=== PATIENT | male | born 1955 | race Caucasian/White ===

== ENCOUNTER 2018-09-09 13:06 | Day surgery (SDC) | payer SELFPAY ==
[~2018-09-09] VITALS: Ht 162.6 cm; Wt 86.9 kg
[~2018-09-09 13:06] MED LIST: ASPIRIN 81M81 MG/TA2 PO; FOLIC ACID 11 MG/TA1 PO; LOPRESSOR100 MG PO; NORVASC 10MG10 MG PO; NORVASC 5MG5 MG/TAB PO; THERAGRAN TAB1 UDTAB PO; THIAMINE 1100 MG/TAB PO; VASOTEC 10M10 MG/TAB PO
[2018-09-09 13:22] VITALS: BP 155/93; PULSE 82; TEMP 97.6
[2018-09-09] MEDS ORDERED: CATAPRES 0.1MG0.1 MG PO (14:04)
[2018-09-09] MEDS ORDERED: COZAAR 25MG25 MG/TAB PO (14:05)
[2018-09-09] MEDS ORDERED: MEVACOR10 MG PO (14:06)
[2018-09-09] MEDS ORDERED: BYSTOLIC10 MG PO (14:07)
[2018-09-09 14:55] VITALS: BP 159/91; PULSE 68; TEMP 97.9
--- NOTE | 2018-09-09 14:55 | NUR ---
TO BAY 2 VIA CART FROM ENDO ROOM, PT WALKED TO CHAIR, PAUL IN ROOM, HELPS WITH TRANSLATION, PT TAKES WATER, C/O GAS PAIN, CALL LIGHT IN REACH
[2018-09-09 15:10] VITALS: BP 155/100; PULSE 71
[2018-09-09 15:25] VITALS: BP 145/95; PULSE 66
--- NOTE | 2018-09-09 15:25 | NUR ---
IN TO TALK WITH PT AND PAUL. IV D'CD INTACT, PT UP TO B/R THEN DRESSED
[2018-09-09 15:40] VITALS: BP 153/92; PULSE 69
--- NOTE | 2018-09-09 16:00 | NUR ---
REVIEWED DISCHARGE INST. WITH PT WITH PAUL INTERPRETING, ON ACTIVITY, PRECAUTIONS AND FOLLOWUP WITH VERBAL UNDERSTANDING. PT DISCHARGED VIA W/C TO [facility]
== END 2018-09-09 16:00 | disposition home or self-care (01) ==
LOC: SDCO 13:06
DX: D12.5 Benign neoplasm of sigmoid colon (principal); K92.1 Melena; E66.9 Obesity, unspecified; Z68.35 Body mass index [BMI] 35.0-35.9, adult; Z79.82 Long term (current) use of aspirin
CPT/HCPCS: J2250; J2405; J3010; J7030

== ENCOUNTER 2019-06-18 11:02 | Inpatient (IN) | payer SELFPAY ==
[2019-06-18] VITALS (419 sets, daily range): BP systolic 137–160; BP diastolic 92–101; PULSE 76–89; TEMP 97.9–98.5; O2SAT 84–100
[~2019-06-18] VITALS: Ht 157 cm; Wt 86.4 kg
[~2019-06-18 11:02] MED LIST changes: +BYSTOLIC10 MG PO; +CATAPRES 0.1MG0.1 MG PO; +COZAAR 25MG25 MG/TAB PO; +MEVACOR10 MG PO
[2019-06-18 11:26] LABS: BASO # 0.1 (0.0-0.2); BASO % 1.4 % (0.0-2.0); EOS # 0.1 (0.0-0.7); EOS % 2.1 % (0-4.0); GRAN # 1.8 (1.4-6.5); GRAN % 40.3 % (42.2-75.2); HEMATOCRIT 40.7 % (42.0-52.0); HEMOGLOBIN 14.8 g/dl (13.5-18.0); LYMPH # 1.9 (1.2-3.4); LYMPH % 44.5 % (20.0-51.0); MEAN CELL VOLUME 84 fl (80.0-100.0); MEAN CORPUSCULAR HEMOGLOBIN 30 pg (27.0-31.0); MEAN CORPUSCULAR HGB CONC 36 g/dl (33.0-37.0); MONO # 0.5 (0.1-0.6); MONO % 11.2 % (1.7-9.3); PLATELET COUNT 237 K/mm3 (130-400); RED BLOOD COUNT 4.87 M/mm3 (4.20-5.60)
[2019-06-18 11:30] LABS: PROTHROMBIN TIME 11.9 SECONDS (9.7-12.8)
[2019-06-18 11:33] LABS: PARTIAL THROMBOPLASTIN TIME 33.2 SECONDS (26.0-37.0)
[2019-06-18 11:38] LABS: ALBUMIN 4.3 gm/dL (3.5-5.0); BILIRUBIN,TOTAL 0.4 mg/dL (0.0-1.0); CALCIUM 8.5 mg/dL (8.4-10.2); CREATININE, serum 0.83 (0.66-1.25); MAGNESIUM 1.9 mg/dL (1.6-2.3); POTASSIUM 3.6 mmol/L (3.4-5.0); TOTAL PROTEIN 7.6 gm/dL (6.4-8.2)
[2019-06-18] MEDS ORDERED: ASPIRIN 81M81 MG/TA2 PO (11:46)
[2019-06-18] MEDS ORDERED: PRINIVIL40 MG PO (11:46)
[2019-06-18 11:56] LABS: TROPONIN-I 0.049 ng/mL (0.000-0.035)
--- NOTE | 2019-06-18 19:07 | NUR ---
REPORT GIVEN TO ERASMO OCAMPO. PATIENT HAS NO COMPLAINTS. CARE TURNED OVER AT THIS TIME.
--- NOTE | 2019-06-18 21:05 | NUR ---
Patient states his chest pain has increased to 4/10. Notified cardiology, see notification flowsheet for orders to increase Nitro. After increasing medication, patient reports chest pain is 2/10 and "better"
[2019-06-19] VITALS (1137 sets, daily range): BP systolic 142–188; BP diastolic 86–127; PULSE 73–107; TEMP 98–98.7; O2SAT 76–100
--- NOTE | 2019-06-19 02:32 | NUR ---
Patient complaining of difficulty breathing and requests oxygen via nasal cannula. SpO2 prior to oxygen adminstation is 97%, after administration is 98% but patient states it is helping. Patient also states that chest pain is 2/10. No other complaints from patient, IV infusing well, patient uses urinal in bed independently.
--- NOTE | 2019-06-19 05:42 | NUR ---
Patient reports no chest pain at this time. See IV gtt titration for medication status. IV infusing well, patient tolerated ECG well, uses urinal in bed per self and reports no other complaints at this time.
[2019-06-19 06:40] LABS: ALBUMIN 3.8 gm/dL (3.5-5.0); BILIRUBIN,TOTAL 0.6 mg/dL (0.0-1.0); CALCIUM 7.4 mg/dL (8.4-10.2); CHOLESTEROL RISK RATIO 2.7; CREATININE, serum 0.8 (0.66-1.25); MAGNESIUM 1.9 mg/dL (1.6-2.3); POTASSIUM 3.7 mmol/L (3.4-5.0); TOTAL PROTEIN 6.8 gm/dL (6.4-8.2)
[2019-06-19 06:50] LABS: TROPONIN-I 0.028 ng/mL (0.000-0.035)
--- NOTE | 2019-06-19 07:22 | NUR ---
Report received from Alee ZIMMERMAN and care resumed.
--- NOTE | 2019-06-19 09:03 | NUR ---
Cardiology in to see pt at this time.
--- NOTE | 2019-06-19 09:55 | NUR ---
FIGUEROA lee met with the patient to complete intial assessment. The patient lives in [place] with his , Marisabel and their granddaughter. The patient receives medical care and medications from [facility] in . The patient does not have advanced directives in the EMR. The patient is self-pay. FIGUEROA lee contacted [employer] financial reporting accountant and she reports they will complete a financial assistance application. The patient inquired about his procedure. FIGUEROA lee informed the patient's nurse about his inquiry. The patient plans to return home upon discharge with Marisabel providing transportation. director of perioperative services will continue to monitor.
--- NOTE | 2019-06-19 11:25 | NUR ---
Pt taken to slab puller at this time by Catarina slab puller RN. Heparin, nitro, and IV fluids were all stopped and disconnected at this time by slab puller staff.
--- NOTE | 2019-06-19 11:34 | NUR ---
SEE MERGE FOR MEDICATION ADMINISTRATION TIMES AND INTRA AND POST SEDATION ASSESSMENTS.
--- NOTE | 2019-06-19 12:16 | NUR ---
bedside hand off report to claribel kim. TR band in place on r hand with 13 in the band. pt alert and oriented. claribel kim in the room with patient at this time.
--- NOTE | 2019-06-19 12:25 | NUR ---
Report received from Alaina ZIMMERMAN in agricultural labor [employer] manager and pt returned to room 8. Placed on monitor and assessment complete. Pt has TR band in place to right wrist. Will continue to follow.
--- NOTE | 2019-06-19 12:35 | NUR ---
Cardiology paged for order clarification.
--- NOTE | 2019-06-19 13:04 | NUR ---
Cardiology paged for order clarification. Return number left.
--- NOTE | 2019-06-19 13:33 | NUR ---
Cardiology paged a 2nd time for order clarification. Return number left.
--- NOTE | 2019-06-19 19:28 | NUR ---
Report given to Alee ZIMMERMAN and care transfered.
--- NOTE | 2019-06-19 20:45 | NUR ---
TR band removed at shift change with ERASMO Ramon. No bleeding or hematoma at site of insertion. Bandaid applied.
--- NOTE | 2019-06-19 21:34 | NUR ---
Patient snoring while asleep, pulse ox drops into the 80s so oxymask with 2L O2 applied, notified BACKFILLER as well. Patient tolerating well at this time.
[2019-06-20] VITALS (463 sets, daily range): BP systolic 122–168; BP diastolic 81–108; PULSE 79–103; TEMP 97.8–98.5; O2SAT 77–100
--- NOTE | 2019-06-20 04:44 | NUR ---
Patient pulse oximetry readings dropped into 70% range with periods of apnea followed by loud snores. Oxygen increased to 4L via oxymask. Patient encouraged to leave mask in place.
[2019-06-20 06:40] LABS: HEMATOCRIT 39.4 % (42.0-52.0); HEMOGLOBIN 14.4 g/dl (13.5-18.0); MEAN CELL VOLUME 83 fl (80.0-100.0); MEAN CORPUSCULAR HEMOGLOBIN 30 pg (27.0-31.0); MEAN CORPUSCULAR HGB CONC 37 g/dl (33.0-37.0); MEAN PLATELET VOLUME 9.3 fl (7.4-10.4); PLATELET COUNT 187 K/mm3 (130-400); RED BLOOD COUNT 4.73 M/mm3 (4.20-5.60); REDCELL DISTRIBUTION WIDTH-CV 12.6 % (11.5-14.5)
--- NOTE | 2019-06-20 07:17 | NUR ---
REPORT RECEIVED FROM TERRENCE ZIMMERMAN. CARE ASSUMED.
[2019-06-20 07:42] LABS: ALBUMIN 3.8 gm/dL (3.5-5.0); BILIRUBIN,TOTAL 1.6 mg/dL (0.0-1.0); CALCIUM 8.1 mg/dL (8.4-10.2); CREATININE, serum 0.81 (0.66-1.25); POTASSIUM 3.5 mmol/L (3.4-5.0); TOTAL PROTEIN 6.9 gm/dL (6.4-8.2)
--- NOTE | 2019-06-20 14:44 | NUR ---
FIGUEROA lee met with the patient to follow-up about alcohol treatment. The patient was not interested in inpatient treatment. However, he is interested in Tajik speaking outpatient services. FIGUEROA lee contacted [facility] to inquire about Tajik speaking services. [facility] directed [employer]PERVIS[employer] student to [facility] at . [employer] PLANT SUPERVISORGus lee left message. nutrition services worker will continue to monitor.
--- NOTE | 2019-06-20 17:24 | NUR ---
ATTEMPTED TO CALL REPORT TO ENEIDA RN. NURSE UNABLE TO TAKE REPORT, STATES WILL CALL BACK IN FEW MINUTES.
--- NOTE | 2019-06-20 17:44 | NUR ---
REPORT CALLED TO ENEIDA ZIMMERMAN.
--- NOTE | 2019-06-20 18:20 | NUR ---
PT TRANSFERRED VIA WHEELCHAIR TO MEDICAL ROOM 354. PT'S GRANDDAUGHTER AT BEDSIDE AND IS ABLE TO TRANSLATE. PATIENT WISHED TO WASH HIS FACE UPON ENTERING ROOM. PT ASSISTED TO BATHROOM WITH STANDBY ASSISTANCE. GRANDDAUGHTER STATES SHE WILL KEEP AN EYE ON PATIENT. CONTACT MADE WITH ENEIDA UPON TRANSFER TO COMMUNICATE PATIENT IS IN BATHROOM. PT'S BELONGINGS TRANSFERRED WITH PATIENT.
--- NOTE | 2019-06-21 02:56 | NUR ---
Patient speaks very little kenyan. Alcohol withdrawal scale scores 2-3. No PRN medication needed so far this shift. Patient has rested well. Bed alarm on. Utilizes urinal for urination. INT to right hand and right forearm. Currently taking Serax. Tolerating this well. No agitation noted and patient is pleasant with staff. No loose stools so far this shift. Patient denies any needs. Will continue to monitor.
[2019-06-21 03:56] VITALS: BP 150/99; PULSE 86; TEMP 98
[2019-06-21 07:05] LABS: BASO % 0.6 % (0.0-2.0); EOS # 0.1 (0.0-0.7); EOS % 2.8 % (0-4.0); GRAN % 60.4 % (42.2-75.2); HEMATOCRIT 40.9 % (42.0-52.0); HEMOGLOBIN 14.7 g/dl (13.5-18.0); LYMPH # 1.2 (1.2-3.4); MEAN CELL VOLUME 84 fl (80.0-100.0); MEAN CORPUSCULAR HEMOGLOBIN 30 pg (27.0-31.0); MEAN CORPUSCULAR HGB CONC 36 g/dl (33.0-37.0); MEAN PLATELET VOLUME 9.2 fl (7.4-10.4); MONO # 0.6 (0.1-0.6); MONO % 12.4 % (1.7-9.3); PLATELET COUNT 196 K/mm3 (130-400); RED BLOOD COUNT 4.85 M/mm3 (4.20-5.60); REDCELL DISTRIBUTION WIDTH-CV 12.9 % (11.5-14.5)
[2019-06-21 07:18] LABS: CALCIUM 8.5 mg/dL (8.4-10.2); CREATININE, serum 0.87 (0.66-1.25); MAGNESIUM 2.2 mg/dL (1.6-2.3); POTASSIUM 3.9 mmol/L (3.4-5.0)
--- NOTE | 2019-06-21 08:00 | NUR ---
Patient resting in bed at this time. Patient is alert and oriented, answers questions he can understand appropriately, able to communicate that he is not having pain and would like to go home today. Patient is not exhibiting signs of ETHO withdrawal at this time. Call light within reach.
[2019-06-21 08:08] VITALS: BP 127/84; PULSE 82; TEMP 97.9
[2019-06-21 08:34] LABS: TOTAL PROTEIN 7.4 gm/dL (6.4-8.2)
[2019-06-21] MEDS ORDERED: LIPITOR 80MG80 MG PO (09:53)
[2019-06-21] MEDS ORDERED: IMDUR 30MG30 MG/TAB PO (09:54)
[2019-06-21] MEDS ORDERED: COREG12.5 MG PO (09:54)
[2019-06-21] MEDS ORDERED: MULTI VITAMINS1 TAB PO (09:57)
[2019-06-21] MEDS ORDERED: THIAMINE 1100 MG/TAB PO (09:57)
[2019-06-21] MEDS ORDERED: FOLIC ACID 11 MG/TA1 PO (09:57)
[2019-06-21] MEDS ORDERED: SERAX30 MG PO (10:01)
[2019-06-21] MEDS ORDERED: LASIX 20MG TABL20 MG PO (10:36)
[2019-06-21] MEDS ORDERED: K-DUR 10 MEQ T10 MEQ PO (10:37)
[2019-06-21 11:45] VITALS: BP 122/83; PULSE 80; TEMP 97.8
--- NOTE | 2019-06-21 14:00 | NUR ---
INT removed, catheter intact, hemostasis achieved. Discharge teaching completed with patient and family, patient given discharge teaching and instructions in finnish. Patient and family verbalize understanding, deny further needs. Patient escorted to visitor entrance.
== END 2019-06-21 16:00 | disposition home or self-care (01) | DRG 281 ==
LOC: COL.ER 11:02 → ICU 13:45 → MEDICAL 06-20 18:25
PROVIDERS: Emergency Medicine; Hospitalist; Physician Assistant; ADMIT Internal Medicine
PROC: 4A023N7 Measurement of Cardiac Sampling and Pressure, Left Heart, Percutaneous Approach (ICD-10-PCS; principal; 2019-06-18)
PROC: B2111ZZ Fluoroscopy of Multiple Coronary Arteries using Low Osmolar Contrast (ICD-10-PCS; 2019-06-18)
PROC: HZ2ZZZZ Detoxification Services for Substance Abuse Treatment (ICD-10-PCS; 2019-06-18)
DX: I21.4 Non-ST elevation (NSTEMI) myocardial infarction (principal); F10.239 Alcohol dependence with withdrawal, unspecified; I10 Essential (primary) hypertension; E78.00 Pure hypercholesterolemia, unspecified; R74.0 Nonspecific elevation of levels of transaminase and lactic acid dehydrogenase [LDH]; Y90.8 Blood alcohol level of 240 mg/100 ml or more; F32.9 Major depressive disorder, single episode, unspecified; E78.1 Pure hyperglyceridemia; I34.0 Nonrheumatic mitral (valve) insufficiency; E87.6 Hypokalemia; Z79.82 Long term (current) use of aspirin
CPT/HCPCS: 99223-AI; 99233-AI; 99239; C9113; J1644; J1650; J2060; J2270; J2405; J3010; J3411; J3475; J7030

== ENCOUNTER 2020-01-26 07:35 | Outpatient (CLI) | payer SELFPAY ==
[~2020-01-26] VITALS: Ht 157.5 cm; Wt 84.8 kg
[2020-01-26] VITALS (7 sets, daily range): BP systolic 157–195; BP diastolic 105–121; PULSE 67–85; TEMP 98.3
[~2020-01-26 07:35] MED LIST changes: +COREG12.5 MG PO; +IMDUR 30MG30 MG/TAB PO; +K-DUR 10 MEQ T10 MEQ PO; +LASIX 20MG TABL20 MG PO; +LIPITOR 80MG80 MG PO; +MULTI VITAMINS1 TAB PO; +PRINIVIL40 MG PO; +SERAX30 MG PO
[2020-01-26 08:26] LABS: MEAN CELL VOLUME 85 fl (80.0-100.0); MEAN CORPUSCULAR HEMOGLOBIN 30 pg (27.0-31.0); MEAN CORPUSCULAR HGB CONC 35 g/dl (33.0-37.0); MEAN PLATELET VOLUME 9.4 fl (7.4-10.4); PLATELET COUNT 228 K/mm3 (130-400); RED BLOOD COUNT 4.73 M/mm3 (4.20-5.60)
[2020-01-26 08:31] LABS: INR 1.2 (0.8-3.0); PROTHROMBIN TIME 13.6 SECONDS (9.7-12.8)
[2020-01-26] MEDS ORDERED: ASPIRIN E.C. 8181 MG PO (08:31)
[2020-01-26] MEDS ORDERED: ONE-A-DAY ESSE1 EACH PO (08:32)
[2020-01-26] MEDS ORDERED: COREG 25MG25 MG/TAB PO (08:33)
[2020-01-26] MEDS ORDERED: BALANCE B-1001 TA1 PO (08:33)
[2020-01-26] MEDS ORDERED: KLOR-CON SPRIN10 MEQ PO (08:34)
[2020-01-26] MEDS ORDERED: BUSPAR DIVIDOSE15 MG PO (08:35)
[2020-01-26 08:36] LABS: CALCIUM 9.1 mg/dL (8.4-10.2); CREATININE, serum 0.98 (0.66-1.25); POTASSIUM 4.2 mmol/L (3.4-5.0)
[2020-01-26] MEDS ORDERED: LASIX 20MG TABL20 MG PO (08:36)
[2020-01-26] MEDS ORDERED: COZAAR 50MG50 MG/TAB PO (08:36)
[2020-01-26] MEDS ORDERED: LIPITOR 80MG80 MG PO (08:38)
[2020-01-26] MEDS ORDERED: IMDUR 60MG60 MG/TAB PO (08:38)
[2020-01-26] MEDS ORDERED: COZAAR100 MG PO (09:16)
--- NOTE | 2020-01-26 10:50 | NUR ---
Pt tolerating PO food and fluid without difficulty. DC instructions reviewed with pt and granddaughter, Stella, who is assisting with translation. Both express understanding and deny questions. IV DC'd with catheter intact, bleeding controlled. Pt is assisted out to car by wheelchair.
== END 2020-01-26 10:50 | disposition home or self-care (01) ==
LOC: COL.RAD 07:35
PROVIDERS: Internal Medicine Cardiovascular Disease
DX: R94.31 Abnormal electrocardiogram [ECG] [EKG] (principal)
CPT/HCPCS: J2704

== ENCOUNTER 2020-03-26 22:52 | Emergency (ER) | payer SELFPAY ==
[~2020-03-26 22:52] MED LIST changes: +ASPIRIN E.C. 8181 MG PO; +BALANCE B-1001 TA1 PO; +BUSPAR DIVIDOSE15 MG PO; +COREG 25MG25 MG/TAB PO; +COZAAR 50MG50 MG/TAB PO; +COZAAR100 MG PO; +IMDUR 60MG60 MG/TAB PO; +KLOR-CON SPRIN10 MEQ PO; +ONE-A-DAY ESSE1 EACH PO
[2020-03-26 22:56] VITALS: TEMP 98.6
[2020-03-27 01:15] VITALS: BP 149/100; PULSE 73
== END 2020-03-27 01:33 | disposition home or self-care (01) ==
LOC: COL.ER 22:52
DX: K91.840 Postprocedural hemorrhage of a digestive system organ or structure following a digestive system procedure (principal); I10 Essential (primary) hypertension; E78.5 Hyperlipidemia, unspecified; F41.9 Anxiety disorder, unspecified; Z79.82 Long term (current) use of aspirin

== ENCOUNTER → 2020-12-02 | Outpatient (CLI) | payer MEDICARE | LOC: COL.RAD 09:00 | DX: M25.562 Pain in left knee (principal); M25.561 Pain in right knee ==

== ENCOUNTER 2022-01-26 09:05 | Inpatient (IN) | payer MEDICARE ==
[~2022-01-26] VITALS: Ht 180.3 cm; Wt 91.0 kg
[2022-01-26 10:09] LABS: BASO % 0.6 % (0.0-2.0); EOS # 0.1 K/mm3 (0.0-0.7); EOS % 1.6 % (0.0-4.0); GRAN # 4.8 K/mm3 (1.4-6.5); GRAN % 68.8 % (42.2-75.2); HEMATOCRIT 37.5 % (42.0-52.0); HEMOGLOBIN 13.4 g/dl (13.5-18.0); LYMPH # 1.3 K/mm3 (1.2-3.4); LYMPH % 18.2 % (20.0-51.0); MEAN CELL VOLUME 85 fl (80.0-100.0); MEAN CORPUSCULAR HEMOGLOBIN 30 pg (27-31); MEAN CORPUSCULAR HGB CONC 36 g/dl (33.0-37.0); MEAN PLATELET VOLUME 9.3 fl (7.4-10.4); MONO # 0.7 K/mm3 (0.1-0.6); MONO % 10.5 % (1.7-9.3); PLATELET COUNT 241 K/mm3 (130-400); RED BLOOD COUNT 4.41 M/mm3 (4.20-5.60); REDCELL DISTRIBUTION WIDTH-CV 12.4 % (11.5-14.5)
[2022-01-26 10:28] LABS: ALBUMIN 3.6 gm/dL (3.4-4.8); CREATININE, serum 1.09 mg/dL (0.72-1.25); MAGNESIUM 2.2 mg/dL (1.6-2.6); PHOSPHOROUS 3.2 mg/dL (2.3-4.7); POTASSIUM 4.3 mmol/L (3.5-4.5)
[2022-01-26 13:59] LABS: PARTIAL THROMBOPLASTIN TIME 37.7 SECONDS (26.0-37.0)
[2022-01-26 21:01] VITALS: BP 118/81; PULSE 73; TEMP 97.6
[2022-01-27] VITALS (12 sets, daily range): BP systolic 133–177; BP diastolic 82–96; PULSE 68–91; TEMP 97.7–98.7
[2022-01-27 06:03] LABS: BASO % 0.5 % (0.0-2.0); EOS # 0.1 K/mm3 (0.0-0.7); EOS % 1.6 % (0.0-4.0); GRAN # 6.4 K/mm3 (1.4-6.5); GRAN % 74.2 % (42.2-75.2); HEMATOCRIT 38.8 % (42.0-52.0); HEMOGLOBIN 13.3 g/dl (13.5-18.0); LYMPH # 1.2 K/mm3 (1.2-3.4); LYMPH % 13.8 % (20.0-51.0); MEAN CELL VOLUME 89 fl (80.0-100.0); MEAN CORPUSCULAR HEMOGLOBIN 31 pg (27-31); MEAN CORPUSCULAR HGB CONC 34 g/dl (33.0-37.0); MEAN PLATELET VOLUME 10.1 fl (7.4-10.4); MONO # 0.8 K/mm3 (0.1-0.6); MONO % 9.5 % (1.7-9.3); PLATELET COUNT 227 K/mm3 (130-400); RED BLOOD COUNT 4.36 M/mm3 (4.20-5.60); REDCELL DISTRIBUTION WIDTH-CV 12.6 % (11.5-14.5)
[2022-01-27 06:19] LABS: CALCIUM 8.9 mg/dL (8.4-10.2); CREATININE, serum 1.04 mg/dL (0.72-1.25); MAGNESIUM 2.2 mg/dL (1.6-2.6); POTASSIUM 4.3 mmol/L (3.5-4.5)
[2022-01-28 00:34] VITALS: BP 157/81; PULSE 71; TEMP 97.7
[2022-01-28 04:59] VITALS: BP 151/86; PULSE 72; TEMP 97.9
[2022-01-28 06:30] LABS: MEAN CELL VOLUME 86 fl (80.0-100.0); MEAN CORPUSCULAR HEMOGLOBIN 30 pg (27-31); MEAN CORPUSCULAR HGB CONC 35 g/dl (33.0-37.0); MEAN PLATELET VOLUME 10.2 fl (7.4-10.4); PLATELET COUNT 216 K/mm3 (130-400); RED BLOOD COUNT 4.27 M/mm3 (4.20-5.60); REDCELL DISTRIBUTION WIDTH-CV 12.5 % (11.5-14.5)
[2022-01-28 06:42] LABS: HEMATOCRIT 36.8 % (42.0-52.0)
[2022-01-28 08:00] VITALS: BP 141/105; PULSE 74; TEMP 98.6
[2022-01-28] MEDS ORDERED: NORVASC 5MG5 MG/TAB PO (10:12)
[2022-01-28 11:32] VITALS: BP 148/86; PULSE 78; TEMP 99
[2022-01-28] MEDS ORDERED: BETAPACE 80MG80 MG PO (12:02)
[2022-01-28] MEDS ORDERED: ELIQUIS 5MG PO (12:02)
[2022-01-28 15:15] VITALS: BP 155/89; PULSE 70; PULSE 76; TEMP 97.7; TEMP 98.4
== END 2022-01-28 16:48 | disposition home or self-care (01) | DRG 308 ==
LOC: COL.ER 09:05 → MEDICAL 11:53
PROVIDERS: Emergency Medicine; ADMIT Internal Medicine
PROC: 5A2204Z Restoration of Cardiac Rhythm, Single (ICD-10-PCS; principal; 2022-01-26)
DX: I48.92 Unspecified atrial flutter (principal); I50.43 Acute on chronic combined systolic (congestive) and diastolic (congestive) heart failure; I27.20 Pulmonary hypertension, unspecified; E78.1 Pure hyperglyceridemia; I25.10 Atherosclerotic heart disease of native coronary artery without angina pectoris; E78.5 Hyperlipidemia, unspecified; I48.91 Unspecified atrial fibrillation; F32.A Depression, unspecified; F41.9 Anxiety disorder, unspecified; K59.00 Constipation, unspecified; I08.1 Rheumatic disorders of both mitral and tricuspid valves; Z79.82 Long term (current) use of aspirin; Z95.4 Presence of other heart-valve replacement; I11.0 Hypertensive heart disease with heart failure
CPT/HCPCS: A9500; J1644; J1940; J2060; J2704; J2785; J7030